=== PATIENT | female | born 1965 ===

== ENCOUNTER 2019-01-02 06:26 | Day surgery (SDC) | payer OTHER ==
[~2019-01-02 06:26] MED LIST: APRESOLINE 10MG10 MG PO; LOSARTAN-HCTZ1 EAC1 PO; METFORMIN HCL500 MG PO; NEURONTIN300 MG PO; NORVASC5 MG PO; NOVALIN N; OMEGA-31000 MG PO; PROZAC10 MG PO; SYNTHROID150 MCG PO; TOPROL XL100 M1 PO; VITAMIN D310000 UNIT PO; [UNRECOGNIZED DRUG - OTHER]
== END 2019-01-02 17:40 | disposition home or self-care (01) ==
LOC: CIR.AMB 06:26
DX: S63.591A Other specified sprain of right wrist, initial encounter (principal)